=== PATIENT | female | born 1990 | race African-American/Black ===

== ENCOUNTER 2022-02-13 16:39 | Emergency (ER) | payer MEDICAID, OTHER ==
[~2022-02-13] VITALS: Ht 165.1 cm; Wt 97.1 kg
[~2022-02-13 16:39] MED LIST: PREN27TA7 OR
[2022-02-13 17:01] VITALS: BP 121/93
[2022-02-13] MEDS ORDERED: ACET-1158 PO (19:22)
[2022-02-13] MEDS ORDERED: CYCL-837 PO (19:22)
== END 2022-02-13 21:43 | disposition home or self-care (01) ==
LOC: ER 16:39
DX: S16.1XXA Strain of muscle, fascia and tendon at neck level, initial encounter (principal); V43.62XA Car passenger injured in collision with other type car in traffic accident, initial encounter; Y93.89 Activity, other specified; Y92.488 Other paved roadways as the place of occurrence of the external cause; Y99.8 Other external cause status; Z88.6 Allergy status to analgesic agent

== ENCOUNTER 2024-06-11 03:41 | Observation (INO) | payer MEDICAID ==
[~2024-06-11] VITALS: Ht 165.1 cm; Wt 102.1 kg
[~2024-06-11 03:41] MED LIST changes: +ACET500T58 PO; +CYCL-837 PO
[2024-06-11] MEDS: TERBUTALINE SULFATE 1 MG/ML 1ML VIAL SC ONE (04:26)
[2024-06-11] MEDS ORDERED: NIFE10CA52 PO (04:27)
[2024-06-11] MEDS: TERBUTALINE SULFATE 1 MG/ML 1ML VIAL SC SCH (04:29)
[2024-06-11] MEDS: NIFEdipine 10 MG CAP PO ONE (04:51)
[2024-06-11] MEDS: LACTATED RINGER'S 1,000 ML IV ONE (05:53)
--- NOTE | 2024-06-11 07:11 | DVH ---
CLINICAL HISTORY: abdominal pain, contractions, cervical length. COMPARISON: None TECHNIQUE: biophysical profile was performed. Transabdominal sonographic images of the fetus we re obtained. Transvaginal exam was done for cervical length. FINDINGS: The fetus is in cephalic position. heart rate measures 169 BPM. Amniotic fluid index measures 15.4 cm. The placenta is posterior in position. Cervical length measures 1.8 cm. BPP profile is an overall score of 8/8, with 2/2 points for breathing, with at least one episode of breathing over a 30 second duration during a 30 minute observation, 2/2 points for m ovements, with 3 or more discrete body or limb movements, 2/2 points for tone, with one or more episodes of extremity extension with return to flexion, or opening and closing of hand, and 2/ 2 points for amniotic fluid, with at least 1 pocket of amniotic fluid that measures 2 cm in 2 perpend icular planes. IMPRESSION: 1. BPP score of 8/8. 2. Cervical length measures 1.8 cm. 3. heart rate of 169 beats per minute.
[2024-06-11] MEDS: BETAMETHASONE ACET (30mg/5ml) 5ml Vial 6mg/ml IM ONE (07:42)
--- NOTE | 2024-06-11 15:44 | DVHDS2 ---
Physician Discharge Progress N Final Diagnosis: cramping ptl,34wks Operations or Procedures: Operations or Procedures nst 34 wks,sono Condition on Discharge: Good Disposition: Home Discharge Instructions: Diet: Regular Activity: Light activity Medications: na Follow Up Care: Specialist: 2d Discharge Statement: "Patient was advised to return to the ER or call 911 if any headaches, dizziness, shortness of breath, chest pain, abdominal pain, bleeding, fevers, or worsening of medical condition. Patient was counseled about treatment plan, medications, possible side effects, patientverbalized understanding. All questions were answered to the best of my ability. This discharge took greater then 30 minutes in planning, reviewing documentation, counseling the patient, and discussing with other team members." Visit Coding OBGYN Date of Service: Jun 11, 2024 Billing Provider: GERTRUDIS TEAGUE DO AIRCRAFT MECH[employer]IC [employer] Common Visit Codes: 18550-EWP/OBS DISCH DAY >30MIN [employer] Procedure Codes: 34539-94- NON-STRESS TEST GERTRUDIS TEAGUE DO Jun 11, 2024 15:44
== END 2024-06-11 07:46 | disposition home or self-care (01) ==
LOC: LDRP 03:41
PROVIDERS: ADMIT Obstetrics & Gynecology; ATTEND Obstetrics & Gynecology
DX: O60.03 Preterm labor without delivery, third trimester (principal); Z3A.34 34 weeks gestation of pregnancy; Z79.899 Other long term (current) drug therapy; Z98.890 Other specified postprocedural states
CPT/HCPCS: 59025; 76817; 76818; 81002; 94760; 96360; 96372; G0378; J0702; J3105

== ENCOUNTER 2024-06-12 06:31 | Observation (INO) | payer MEDICAID ==
[~2024-06-12] VITALS: Ht 165.1 cm; Wt 102.1 kg
[~2024-06-12 06:31] MED LIST changes: -ACET500T58 PO; -CYCL-837 PO; +NIFE10CA52 PO; -PREN27TA7 OR
[2024-06-12] MEDS: BETAMETHASONE ACET (30mg/5ml) 5ml Vial 6mg/ml IM ONE (08:51)
--- NOTE | 2024-06-12 16:17 | DVHDS2 ---
Physician Discharge Progress N Final Diagnosis: IUP AT 34 WKS PTL Operations or Procedures: Operations or Procedures KAYLA WEAVER 34 WKS Condition on Discharge: Good Disposition: Home Discharge Instructions: Diet: Regular Activity: Light activity Medications: NA Follow Up Care: Specialist: 1W Discharge Statement: "Patient was advised to return to the ER or call 911 if any headaches, dizziness, shortness of breath, chest pain, abdominal pain, bleeding, fevers, or worsening of medical condition. Patient was counseled about treatment plan, medications, possible side effects, patientverbalized understanding. All questions were answered to the best of my ability. This discharge took greater then 30 minutes in planning, reviewing documentation, counseling the patient, and discussing with other team members." Visit Coding OBGYN Date of Service: Jun 12, 2024 Billing Provider: GERTRUDIS TEAGUE DO [employer] INSPECTOR HELPER Common Visit Codes: 10465-[id number] INP/OBS CARE(MOD), 34797-[id number] INP/OBS CARE(HIGH) [employer]OR HELPER Procedure Codes: 50564-83- NON-STRESS TEST GERTRUDIS TEAGUE DO Jun 12, 2024 16:17
== END 2024-06-12 09:20 | disposition home or self-care (01) ==
LOC: LDRP 08:08
PROVIDERS: ADMIT Obstetrics & Gynecology; ATTEND Obstetrics & Gynecology
DX: O60.03 Preterm labor without delivery, third trimester (principal); Z3A.34 34 weeks gestation of pregnancy; Z79.899 Other long term (current) drug therapy; Z98.890 Other specified postprocedural states
CPT/HCPCS: 59025; 81002; 94760; 96372; G0378